=== PATIENT | female | born 1970 | race Caucasian/White ===

== ENCOUNTER 2018-02-06 07:13 | Day surgery (SDC) | payer OTHER ==
[2018-02-06] MEDS ORDERED: Bupivacaine 0.5% 50 ML MDV ONE (07:28)
[2018-02-06] MEDS ORDERED: Lidocaine 1% with EPINEPHrine 1:100,000 50 ML MDV ONE (07:29)
[2018-02-06] MEDS ORDERED: Midazolam 1 MG/ML 2 ML SDV ONE (07:36)
[2018-02-06] MEDS ORDERED: Propofol 200 MG/20 ML SDV ONE ×2 (07:36→09:17)
[2018-02-06] MEDS ORDERED: fentaNYL 100 MCG/2 ML SDV ONE (07:36)
[2018-02-06] MEDS ORDERED: Albuterol/Ipratropium 3.0-0.5 MG/3 ML Neb Soln NEB ONE (08:00)
[2018-02-06] MEDS ORDERED: Sodium Chloride 0.9% 1,000 ML IV SCH (08:00)
[2018-02-06] MEDS ORDERED: ceFAZolin 2 GM in Sodium Chloride 0.9% 50 ML IV ONE (08:00)
[2018-02-06 10:40] VITALS: BP 122/73
--- NOTE | 2018-02-06 11:20 | OR ---
DATE OF PROCEDURE: 02/06/2018 PROCEDURE: 1. Excision of right shoulder mass, subcutaneous. 2. Excision of right axillary mass, subcutaneous. COMPLICATIONS: None. CARE PROGRAM DIRECTOR: None. ANESTHESIA: MAC. PREOPERATIVE DIAGNOSIS: Axillary and shoulder masses most consistent with lipoma. No abnormalities are noted on ultrasound. POSTOPERATIVE DIAGNOSIS: Axillary and shoulder masses most consistent with lipoma. No abnormalities are noted on ultrasound. RISKS: Risks, benefits, alternatives, and limitations including, but not limited to infection, bleeding, and false positives and false negatives were explained to the patient. We also spent extensive time discussing the masses, specifically the axillary mass that this could be a malignancy and the best course of action would be further evaluation, however, ultrasound imaging was benign. The patient understood these risks and did not want any further testing and preferred excision. PROCEDURE IN DETAIL: The patient was placed in supine position. Right shoulder mass was addressed first. A longitudinal incision was made approximately 3 cm in size, and this was then carried down subcutaneously to the fatty type lesion, which was consistent with lipoma and/or fat pad. This was excised using Metzenbaum scissors. The wound was thoroughly irrigated and closed with 3-0 Vicryl and 4-0 Vicryl in interrupted running fashion. The dressing was applied. The right axillary mass was then excised next. The lesion was then prepped and draped. The skin was anesthetized with lidocaine and was excised using a 15 blade after a 1.5 cm incision was made. Minimal bleeding was controlled with direct pressure. The wound was closed with 3-0 Vicryl and 3-0 Prolene in interrupted fashion. Dressings were applied. The patient tolerated the procedure well. Riaz River MD /[id number]
--- NOTE | 2018-03-06 13:25 | OR ---
DATE OF PROCEDURE: 02/06/2018 ADDENDUM: Of note, the right shoulder mass was approximately 3 cm x 4 cm, and the right axillary mass was approximately 1 cm x 2 cm. Riaz River MD /[id number]
== END 2018-02-06 11:10 | disposition home or self-care (01) ==
LOC: JP.SDS 07:13
PROVIDERS: ATTEND Surgery
DX: D17.21 Benign lipomatous neoplasm of skin and subcutaneous tissue of right arm (principal); N62 Hypertrophy of breast; I10 Essential (primary) hypertension; J45.909 Unspecified asthma, uncomplicated
CPT/HCPCS: 11402; 12031; 23071; 88304; 88305; J0690; J2250; J2704; J3010; J3490; J7030; J7050; J7620-GY

== ENCOUNTER 2021-09-04 18:20 | Emergency (ER) | payer OTHER ==
[2021-09-04 18:42] VITALS: BP 170/83; PULSE 72
[2021-09-04] MEDS ORDERED: Sodium Chloride 0.9% 10 ML Syringe FLUSH PRN (19:11)
[2021-09-04] MEDS ORDERED: Sodium Chloride 0.9% 1,000 ML IV STA (19:11)
[2021-09-04] MEDS ORDERED: Ondansetron 4 MG/2 ML SDV IVPUSH ONE (19:12)
[2021-09-04] MEDS ORDERED: Iopamidol 612 MG/ML 100 ML Bottle IV STA (19:28)
[2021-09-04] MEDS ORDERED: Sodium Chloride 0.9% 50 ML IV STA (19:29)
== END 2021-09-04 21:49 | disposition home or self-care (01) ==
LOC: JP.ED 18:20
DX: R14.0 Abdominal distension (gaseous) (principal); Z88.8 Allergy status to other drugs, medicaments and biological substances; Z79.899 Other long term (current) drug therapy; Z87.891 Personal history of nicotine dependence
CPT/HCPCS: 36415; 74177; 80053; 81001; 81025; 83605; 83690; 84484; 85025; 96374; 99284; 99284-25; J2405; J3490; J7030; Q9967

== ENCOUNTER 2025-02-13 12:43 | Emergency (ER) | payer OTHER ==
[2025-02-13 15:34] VITALS: BP 163/88; PULSE 65
[2025-02-13 16:06] LABS: BASOPHILS PERCENT AUTO 0.3 % (0.1-1.3); EOSINOPHILS ABSOLUTE AUTO 0.04 K/uL (0.00-0.40); EOSINOPHILS PERCENT AUTO 0.5 % (0.0-5.4); IMMATURE GRAN PERCENT AUTO 0.3 % (0.0-0.7); LYMPHOCYTES ABSOLUTE AUTO 1.82 K/uL (0.8-3.3); LYMPHOCYTES PERCENT AUTO 23.2 % (11.4-47.7); MONOCYTES ABSOLUTE AUTO 0.43 K/uL (0.20-0.90); MONOCYTES PERCENT AUTO 5.5 % (3.3-12.6); NEUTROPHILS ABSOLUTE AUTO 5.53 K/uL (1.0-7.6); NEUTROPHILS PERCENT AUTO 70.2 % (40.0-78.1); PLATELET COUNT,PLT 237 K/uL (130-375); RED BLOOD CELL COUNT 4.82 M/uL (3.77-5.24); WHITE BLOOD CELL COUNT,WBC 7.9 K/uL (3.2-11.0)
[2025-02-13 16:10] LABS: BASOPHILS ABSOLUTE AUTO 0.02 K/uL (0.00-0.10); IMMATURE GRAN ABSOLUTE AUTO 0.02 K/uL (0.00-0.23)
[2025-02-13 16:26] LABS: BLOOD UREA NITROGEN,BUN 11.0 mg/dL (7-18); CARBON DIOXIDE,CO2 29.0 mmol/L (21-32); CHLORIDE,CL 103.0 mmol/L (100-108); CREATININE 0.6 mg/dL (0.6-1.0); EST CRCL DRUG DOSING (CG) 89.7 mL/min; ESTIMATED GFR 107.0 mL/min (>60); GLUCOSE RANDOM 104.0 mg/dL (74-106); POTASSIUM,K 4.3 mmol/L (3.6-5.2); SODIUM,NA 139.0 mmol/L (140-148)
== END 2025-02-13 16:39 | disposition home or self-care (01) ==
LOC: JP.ED 12:43
DX: H81.10 Benign paroxysmal vertigo, unspecified ear (principal); I10 Essential (primary) hypertension; Z88.8 Allergy status to other drugs, medicaments and biological substances; Z79.899 Other long term (current) drug therapy; Z90.49 Acquired absence of other specified parts of digestive tract; Z90.710 Acquired absence of both cervix and uterus
CPT/HCPCS: 36415; 80048; 85025; 99284; A9270